=== PATIENT | male | born 1990 | race Caucasian/White ===

== ENCOUNTER 2021-04-20 22:42 | Emergency (ER) | payer SELFPAY ==
[2021-04-21 02:05] LABS: BASOPHIL 0.2 % (0-2); EOSINOPHIL 1.2 % (0-5); HCT 44.9 % (42.0-52.0); LYMPHOCYTE 28.2 % (15-48); MCH 30.7 pg (25.0-31.0); MCHC 33.4 g/dL (32.0-36.0); MCV 91.8 fL (78.0-100.0); MONOCYTE 10.7 % (0-12); MPV 9.9 fL (6.0-9.5); NEUTROPHIL 59.3 % (41-80); NRBC 0; PLT 215 K/uL (150-400); RBC 4.89 M/uL (4.70-6.00); RDW 12.7 % (11.5-14.0); WBC 10.7 K/uL (4.0-10.5)
[2021-04-21 02:25] LABS: ALBUMIN 3.7 g/dL (3.4-5.0); BILIRUBIN - TOTAL 0.2 mg/dL (0.2-1.0); BUN/CREAT RATIO (CALC) 12.4 RATIO; CREATININE 0.89 mg/dL (0.67-1.17); GLOBULIN (CALCULATION) 3.2 g/dL; POTASSIUM 3.9 mmol/L (3.5-5.1); TOTAL PROTEIN 6.9 g/dL (6.4-8.2)
[2021-04-21] MEDS ORDERED: FLEXERIL5 MG PO (05:12)
== END 2021-04-21 05:53 | disposition home or self-care (01) ==
LOC: FER 22:42
PROVIDERS: Emergency Medicine
DX: S22.42XA Multiple fractures of ribs, left side, initial encounter for closed fracture (principal); F17.200 Nicotine dependence, unspecified, uncomplicated; V19.9XXA Pedal cyclist (driver) (passenger) injured in unspecified traffic accident, initial encounter; Y92.410 Unspecified street and highway as the place of occurrence of the external cause
CPT/HCPCS: 36415; 71101; 71260; 80053; 83690; 85025; J7030; Q9967

== ENCOUNTER 2022-03-18 11:53 | Emergency (ER) | payer OTHER ==
[~2022-03-18 11:53] MED LIST: FLEXERIL5 MG PO
== END 2022-03-18 13:00 | disposition home or self-care (01) ==
LOC: FER 11:53
DX: S66.514A Strain of intrinsic muscle, fascia and tendon of right ring finger at wrist and hand level, initial encounter (principal); S66.516A Strain of intrinsic muscle, fascia and tendon of right little finger at wrist and hand level, initial encounter; Z28.310 Unvaccinated for COVID-19; W22.01XA Walked into wall, initial encounter; Y92.009 Unspecified place in unspecified non-institutional (private) residence as the place of occurrence of the external cause
CPT/HCPCS: 73130